=== PATIENT | male | born 1960 | race Caucasian/White ===

== ENCOUNTER → 2017-04-22 | Outpatient (CLI) | payer OTHER | END | disposition home or self-care (01) | LOC: CARD 09:42 | PROVIDERS: ATTEND Family Medicine | DX: R07.89 Other chest pain (principal) | CPT/HCPCS: 93017; 93350 ==

== ENCOUNTER 2018-01-21 05:49 | Emergency (ER) | payer OTHER ==
[~2018-01-21] VITALS: Ht 188 cm; Wt 100.0 kg
[~2018-01-21 05:49] MED LIST: MONT10TA9 PO
[2018-01-21] MEDS ORDERED: HYDROcodone/APAP 7.5-325MG/15ML UDC ONE (06:18)
[2018-01-21] MEDS ORDERED: HYDROcodone/APAP 7.5-325MG/15ML UDC PO ONE (06:30)
[2018-01-21 07:45] VITALS: BP 114/81
== END 2018-01-21 07:36 | disposition home or self-care (01) ==
LOC: ED 07:31
DX: S39.012A Strain of muscle, fascia and tendon of lower back, initial encounter (principal); K20.9 Esophagitis, unspecified; X58.XXXA Exposure to other specified factors, initial encounter; Y93.89 Activity, other specified; Y92.89 Other specified places as the place of occurrence of the external cause; Y99.8 Other external cause status
CPT/HCPCS: 99283

== ENCOUNTER → 2018-02-20 | Outpatient (CLI) | payer OTHER | END | disposition home or self-care (01) | LOC: CFH 06:45 | PROVIDERS: ATTEND Physician Assistant Medical | DX: M51.26 Other intervertebral disc displacement, lumbar region (principal); M48.07 Spinal stenosis, lumbosacral region; M54.16 Radiculopathy, lumbar region; M21.371 Foot drop, right foot | CPT/HCPCS: 72148 ==